=== PATIENT | female | born 1955 | race Hispanic/Latino ===

== ENCOUNTER → 2019-05-02 | Outpatient (CLI) | payer MEDICARE ==
[~2019-05-02] MED LIST: IOPAMIDOL 300 MG/ML 15ML VIAL IT ONE; LORAZEPAM INJ 2 MG/ML VIAL ONE
[2019-05-02 10:03] LABS: INR 0.79; PROTHROMBIN TIME 11.4 seconds (11.9-14.5)
[2019-05-02 10:04] LABS: PARTIAL THROMBOPLASTIN TIME 27.8 seconds (23.8-35.5)
--- NOTE | 2019-05-02 12:48 | Diagnostic Imaging Report ---
PROCEDURE: Image guided lumbar and thoracic spine myelogram Procedural Personnel Attending physician(s): Cordell Laboy MD Fellow physician(s): None Resident physician(s): None Advanced practice provider(s): None Pre-procedure diagnosis: Back pain, radiculopathy Post-procedure diagnosis: Same Indication: Back pain Additional clinical history: None Complications: No immediate complications. IMPRESSION: Fluoroscopically guided thoracic and lumbar myelogram. Patient transported to CT following the procedure for CT myelography. PROCEDURE SUMMARY: - Fluoroscopically guided myelogram, performed at L3-4. PROCEDURE DETAILS: Pre-procedure Consent: Informed consent for the procedure including risks, benefits and alternatives was obtained and time-out was performed prior to the procedure. Preparation: The site was prepared and draped using maximal sterile barrier technique including cutaneous antisepsis. Anesthesia/sedation Level of anesthesia/sedation: Anxiolysis (2mg IV Ativan) Myelogram. Dam Attendant images were obtained. Under image guidance and via a translaminar approach, a needle was advanced to the thecal space. 10cc of Isovue 300 contrast material was delivered. Target level: L3-4 The table was positioned Trendelenburg and contrast was visualized flowing to the thoracic spine. Radiation Dose Fluoroscopy time (minutes): 1.9 Reference air kerma (mGy): 14.5 Additional Details Additional description of procedure: None Equipment details: None Specimens removed: None Estimated blood loss (mL): Less than 10 Attestation Signer name: Cordell Laboy MD I attest that I was present for the entire procedure. I reviewed the stored images and agree with the report as written. Signed by: Cordell Laboy MD on 05/02/2019 12:45 PM
--- NOTE | 2019-05-02 13:57 | Diagnostic Imaging Report ---
CT THORACIC SPINE W HISTORY: Back pain COMPARISON: None. TECHNIQUE: Axial CT images of the thoracic spine were obtained after the administration of intrathecal contrast. Coronal/sagittal reformations were created. One or more of the following dose reduction techniques were used: Automated exposure control, adjustment of the mA and/or kV according to patient size, and/or utilization of iterative reconstruction technique. FINDINGS: Thoracic kyphosis is preserved. There is no significant scoliosis or subluxation. No fracture, compression deformity, or destructive osseous lesions are seen. The thecal sac is well opacified. The spinal cord is overall normal in morphology. The paravertebral and paraspinal soft tissues are unremarkable. Degenerative changes: Mild to moderate multilevel thoracic spondylosis Mild canal stenosis at T8-T9 is due to a posterior disc osteophyte complex. Mild canal stenosis at T10-T11 is due to asymmetric disc bulge towards the right and ligamentum flavum thickening. Mild canal stenosis at T12-L1 due to possible small left central disc extrusion (with mild superior migration). Multilevel foraminal stenoses due to posterior disc osteophyte complexes and facet arthrosis are present - mild bilaterally at T1-T2, mild bilaterally at T2-T3, mild on the left at T8-T9, and moderate on the right at T10-T11. Moderate lower cervical spondylosis is partially imaged. Moderate canal stenosis at C6-C7 is due to posterior disc osteophyte complex. Moderate bilateral C6-C7 and severe right and moderate left foraminal stenoses are due to uncovertebral and facet arthrosis. Additional findings: There is mild bibasilar atelectasis. A small hiatal hernia is present. Surgical clips along the proximal stomach are partially imaged. Diffuse scattered calcified atherosclerosis is present. IMPRESSION: 1. No acute osseous abnormalities. 2. Mild to moderate multilevel thoracic spondylosis. 3. Associated mild canal stenoses at T8-T9, T10-T11, and T12-L1. 4. Multilevel thoracic bilateral foraminal stenoses - moderate on the right at T10-T11. 5. Partially imaged moderate lower cervical spondylosis. Signed by: Dr. Abdiel Mesa M.D. on 05/02/2019 1:54 PM
--- NOTE | 2019-05-02 14:10 | Diagnostic Imaging Report ---
CT LUMBAR SPINE W HISTORY: Back pain COMPARISON: Concurrent thoracic spine myelogram TECHNIQUE: Axial CT images of the lumbar spine were obtained after administration of intrathecal contrast. Coronal and sagittal reconstructions obtained from the axial data. One or more of the following dose reduction techniques were used: Automated exposure control, adjustment of the mA and/or kV according to patient size, and/or utilization of iterative reconstruction technique. DISCUSSION: There are 5 nonrib-bearing lumbar vertebral bodies. Lumbar lordosis is preserved. Mild thoracolumbar levoscoliosis is present. No fracture, compression deformity, or destructive osseous lesion is seen. The thecal sac is opacified. The visualized lower spinal cord and cauda equina are unremarkable. The conus terminates at L1-L2, which is within normal limits. The paravertebral and paraspinal soft tissues are unremarkable. Mild multilevel lumbar spondylosis is present. Mild to moderate bilateral sacroiliac degenerative changes are present as well. L1-L2: Mild left foraminal stenosis due to asymmetric disc bulge and facet arthrosis. No significant canal or right foraminal stenosis. L2-L3: Mild right foraminal stenosis due to asymmetric disc bulge and facet arthrosis. No significant canal or left foraminal stenosis. L3-L4: Mild canal stenosis due to disc bulge and ligamentum flavum thickening. Moderate right and mild to moderate left foraminal stenoses due to disc bulge and facet arthrosis. L4-L5: Mild bilateral foraminal stenoses due to disc bulge and facet arthrosis. No significant canal stenosis. L5-S1: Grade 1 anterolisthesis of L5 on S1 due to severe bilateral L5-S1 facet arthrosis. Mild to moderate right and moderate to severe left foraminal stenoses due to uncovered disc bulge and facet arthrosis. Aortoiliac calcified atherosclerosis is noted. IMPRESSION: 1. No acute osseous abnormalities. 2. Mild multilevel lumbar spondylosis with mild thoracolumbar levoscoliosis. 3. Grade 1 anterolisthesis of L5 on S1 due to severe bilateral L5-S1 facet arthrosis. 4. Multilevel bilateral degenerative foraminal stenoses - moderate to severe on the left at L5-S1. 5. Mild degenerative canal stenosis at L3-L4. Signed by: Dr. Abdiel Mesa M.D. on 05/02/2019 2:06 PM
== END ==
LOC: DX 08:40
PROVIDERS: ATTEND Neurological Surgery
DX: M51.14 Intervertebral disc disorders with radiculopathy, thoracic region (principal)
CPT/HCPCS: 36415; 62305; 72129; 72132; 85049; 85610; 85730; J2060; Q9967

== ENCOUNTER → 2019-10-06 | Day surgery (SDC) | payer MEDICARE, OTHER ==
[2019-10-03 12:05] LABS: BASOPHILS # (AUTO) 0.1 (0.0-0.1); BASOPHILS % 1.1 % (0.0-1.0); EOSINOPHILS # (AUTO) 0.1 (0.0-0.4); EOSINOPHILS % 1.1 % (0.0-6.0); HEMATOCRIT 40.5 % (34.2-44.1); HEMOGLOBIN 13.2 g/dL (12.0-16.0); LYMPHOCYTES # (AUTO) 3.1 (1.0-3.2); LYMPHOCYTES % 42.8 % (18.0-39.1); MEAN CORPUSCULAR HEMOGLOBIN 28.8 pg (28-32); MEAN CORPUSCULAR HGB CONC 32.6 g/dL (31-35); MEAN CORPUSCULAR VOLUME 88.2 fL (81-99); MONOCYTES # (AUTO) 0.4 (0.2-0.8); NEUTROPHILS # (AUTO) 3.6 (2.1-6.9); NEUTROPHILS % 48.9 % (38.7-80.0); PLATELET COUNT 332 x10e3/uL (140-360); RED BLOOD COUNT 4.59 x10e6/uL (3.6-5.1); RED CELL DISTRIBUTION WIDTH 12.3 % (11.7-14.4)
[~2019-10-06] MED LIST changes: +ASPIRIN81 MG PO; +CARVEDILOL3.125 MG PO; +CLONIDINE HCL0.1 MG PO; +CRESTOR10 MG PO; +DEXAMETHASONE SOD PHOS 10 MG/1 ML VIAL ONE; +FENTANYL CITRATE/PF 100MCG/2 ML INJ ONE; +FERROUS SULFAT325 MG PO; +FUROSEMIDE40 MG PO; +GABAPENTIN100 MG PO; +GLIPIZIDE5 MG PO; +IOPAMIDOL 200 MG/ML 20 ML VIAL IT ONE; -IOPAMIDOL 300 MG/ML 15ML VIAL IT ONE; +LIDOCAINE HCL 1% 30ML-PF VIAL ONE; +LIDOCAINE HCL 2% LOCAL INJ 5 ML SDV VIAL INJ ONE; +LISINOPRIL10 MG PO; +LORATADINE10 MG PO; -LORAZEPAM INJ 2 MG/ML VIAL ONE; +METFORMIN HCL500 M2 PO; +MIDAZOLAM HCL 2 MG/2 ML VIAL ONE; +PROPOFOL IV EMULSION 10 MG/ML 20 ML VIAL ONE; +ZANAFLEX4 MG PO; +ZETIA10 MG PO
[2019-10-06 07:15] VITALS: BP 157/76
--- NOTE | 2019-10-06 09:30 | Diagnostic Imaging Report ---
OR Fluoroscopy: IMPRESSION: Fluoroscopy service provided in the OR. Interpretation not requested. Signed by: Tam Tidwell MD on 10/06/2019 9:27 AM
--- OUTSIDE RECORDS SUMMARY | 2019-10-06 10:25 | XMS REPORT ---
Author Author [facility] t Organization [facility] Address [address] [place] [address] [address] [place] [address] Phone Unavailable Care Team Providers Care Rod Greaser Name Role Phone PEDRITO HILL Attphypaulie Unavailable Payers Payer Name Policy Type Policy Number Effective Date Expiration Date S ource Problems This patient has no known problems. Allergies, Adverse Reactions, Alerts Allergy Name Allergy Type Status Severity Reaction(s) Onset Date Inacti ve Date Treating Clinician Comments Source No Known Allergies DA Active U 2014-02-01 00:00:00 [facility] Medications This patient has no known medications. Procedures This patient has no known procedures. Results Test Description Test Time Test Comments Results Result Comments Source CT LUMBAR SPINE W 2019-05-02 13:57:00 [facility] [address] [address] Patient Name: PIERRE ORDAZ MR #: [id number] : 1955 Age/Sex: 63/F Req #: [id number] Adm Physician: Ordered by: PEDRITO HILL MD Report #: [id number] Location: DX Room/Bed: Procedure: [id number] CT/CT LUMBAR SPINE W Exam Date: 05/02/19 Exam Time: 1227 REPORT STATUS: Signed CT LUMBAR SPINE W HISTORY: Back pain COMPARISON: Concurrent thoracic spine myelogram TECHNIQUE: Axial CT images of the lumbar spine were obtained after administration of intrathecal contrast. Coronal and sagittal reconstructions obtained from the axial data. One or more of the following dose reduction techniques were used: Automated exposure control, adjustment of the mA and/or kV according to patient size, and/or utilization of iterative reconstruction technique. DISCUSSION: There are 5 nonrib-bearing lumbar vertebral bodies. Lumbar lordosis is preserved. Mild thoracolumbar levoscoliosis is present. No frac ture, compression deformity, or destructive osseous lesion is seen. The thecal sac is opacified. The visualized lower spinal cord and cauda equina are unremarkable. The conus terminates at L1-L2, which is within normal limits. The paravertebral and paraspinal soft tissues are unremarkable. Mild multilevel lumbar spondylosis is present. Mild to moderate bilateral sacroiliac degenerative changes are present as well. L1-L2: Mild left foraminal stenosis due to asymmetric disc bulge and facet arthrosis. No significant canal or right foraminal stenosis. L2-L3: Mild right foraminal stenosis due to asymmetric disc bulge and facet arthrosis. No significant canal or left foraminal stenosis. L3-L4: Mild canal stenosis due to disc bulge and ligamentum flavum thickening. Moderate right and mild to moderate left foraminal stenoses due to disc bulge and facet arthrosis. L4-L5: Mild bilateral foraminal stenoses due to disc bulge and facet arthrosis. No significant canal stenosis. L5-S1: Grade 1 anterolisthesis of L5 on S1 due to severe bilateral L5-S1 facet arthrosis. Mild to moderate right and moderate to severe left foraminal stenoses due to uncovered disc bulge and facet arthrosis. Aortoiliac calcified atherosclerosis is noted. IMPRESSION: 1. No acute osseous abnormalities. 2. Mild multilevel lumbar spondylosis with mild thoracolumbar levoscoliosis. 3. Grade 1 anterolisthesis of L5 on S1 due to severe bilateral L5-S1 facet arthrosis. 4. Multilevel bilateral degenerative foraminal stenoses - moderate to severe on the left at L5-S1. 5. Mild degenerative canal stenosis at L3-L4. Signed by: Dr. Abdiel Mesa M.D. on 05/02/2019 2:06 PM Dictated By: ABDIEL MESA MD 05 Transcribed By: SADIE on 05/02/191405 COPY TO: PEDRITO HILL MD CT THORACIC SPINE W 2019-05-02 13:37:00 [address] [place] [address] Patient Name: PIERRE ORDAZ MR #: [id number] : 1955 Age/Sex: 63/F Req #: [id number] Adm Physician: Ordered by: PEDRITO HILL MD Report #: [id number] Location: DX Room/Bed: Procedure: [id number] CT/CT THORACIC SPINE W Exam Date: 05/02/19 Exam Time: 1227 REPORT STATUS: Signed CT THORACIC SPINE W HISTORY: Back pain COMPARISON: None. TECHNIQUE: Axial CT images of the thoracic spine were obtained after the administration of intrathecal contrast. Coronal/sagittal reformations were created. One or more of the following dose reduction techniques were used: Automated exposure control, adjustment of the mA and/or kV according to patient size, and/or utilization of iterative reconstruction technique. FINDINGS: Thoracic kyphosis is preserved. There is no significant scoliosis or subluxation. No fracture, compression deformity, or destructive osseous lesions are seen. The thecal sac is well op acified. The spinal cord is overall normal in morphology. The paravertebral and paraspinal soft tissues are unremarkable. Degenerative changes: Mild to moderate multilevel thoracic spondylosis Mild canal stenosis at T8-T9 is due to a posterior disc osteophyte complex. Mild canal stenosis at T10-T11 is due to asymmetric disc bulge towards the right and ligamentum flavum thickening. Mild canal stenosis at T12-L1 due to possible small left central disc extrusion (with mild superior migration). Multilevel foraminal stenoses due to posterior disc osteophyte complexes and facet arthrosis are present - mild bilaterally at T1-T2, mild bilaterally at T2-T3, mild on the left at T8- T9, and moderate on the right at T10-T11. Moderate lower cervical spondylosis is partially imaged. Moderate canal stenosis at C6-C7 is due to posterior disc osteophyte complex. Moderate bilateral C6-C7 and severe right and moderate left foraminal stenoses are due to uncovertebral and facet arthrosis. Additional findings: There is mild bibasilar atelectasis. A small hiatal hernia is present. Surgical clips along the proximal stomach are partially imaged. Diffuse scattered calcified atherosclerosis is present. IMPRESSION: 1. No acute osseous abnormalities. 2. Mild to moderate multilevel thoracic spondylosis. 3. Associated mild canal stenoses at T8-T9, T10-T11, and T12-L1. 4. Multilevel thoracic bilateral foraminal stenoses - moderate on the right at T10-T11. 5. Partially imaged moderate lower cervical spondylosis. Signed by: Dr. Abdiel Mesa M.D. on 05/02/2019 1:54 PM Dictated By: ABDIEL MESA MD 1350 Transcribed By: SADIE on 05/02/19 1353 COPY TO: PEDRITO HILL MD MYELOGRAM 2+ LEVELS INCL INJ 2019-05-02 12:41:00 [place] [address] Patient Name: PIERRE ORDAZ MR #: [id number] : 1955 Age/Sex: 63/F Req #: [id number] Adm Physician: Ordered by: PEDRITO HILL MD Report #: [id number] Location: DX Room/Bed: Procedure: [id number] IR/MYELOGRAM 2+ LEVELS INCL INJ Exam Date: 05/02/19 Exam Time: 1130 REPORT STATUS: Signed PROCEDURE: Image guided lumbar and thoracic spine myelogram Procedural Personnel Attending physician(s): Fiona Dominguez MD Fellow physician(s): None Resident physician(s): None Advanced practice provider(s): None Pre-procedure diag nosis: Back pain, radiculopathy Post-procedure diagnosis: Same Indication: Back pain Additional clinical history: None Complications: No immediate complications. IMPRESSION: Fluoroscopically guided thoracic and lumbar myelogram. Patient transported to CT following the procedure for CT myelography. PROCEDURE SUMMARY: - Fluoroscopically guided myelogram, performed at L3-4. PROCEDURE DETAILS: Pre-procedure Consent: Informed consent for the procedure including risks, benefits and alternatives was obtained and time-out was performed prior to the procedure. Preparation: The site was prepared and draped using maximal sterile barrier technique including cutaneous antisepsis. Anesthesia/sedation Level of anesthesia/sedation: Anxiolysis (2mg IV Ativan) Myelogram. Ratchet Setter images were obtained. Under image guidance and via a translaminar approach, a needle was advanced to the thecal space. 10cc of Isovue 300 contrast material was delivered. Target level: L3-4 The table was positioned Trendelenburg and contrast was visualized flowing to the thoracic spine. Radiation Dose Fluoroscopy time (minutes): 1.9 Reference air kerma (mGy): 14.5 Additional Details Additional description of procedure: None Equipment details: None Specimens removed: None Estimated blood loss (mL): Less than 10 Attestation Signer name: Fiona Dominguez MD I attest that I was present for the entire procedure. I reviewed the stored images and agree with the report as written. Signed by: Fiona Dominguez MD on 05/02/2019 12:45 PM Dictated By: FIONA DOMINGUEZ MD 1245 Transcribed By: SADIE on 05/02/19 1245 COPY TO: PEDRITO HILL MD
== END | disposition home or self-care (01) ==
LOC: OR 05:04
PROVIDERS: ATTEND Physical Medicine & Rehabilitation Pain Medicine
DX: M54.16 Radiculopathy, lumbar region (principal); M54.12 Radiculopathy, cervical region; I11.0 Hypertensive heart disease with heart failure; I50.9 Heart failure, unspecified; E78.5 Hyperlipidemia, unspecified; E11.9 Type 2 diabetes mellitus without complications; E03.9 Hypothyroidism, unspecified; I25.2 Old myocardial infarction; K44.9 Diaphragmatic hernia without obstruction or gangrene; D64.9 Anemia, unspecified; R00.1 Bradycardia, unspecified; Z79.82 Long term (current) use of aspirin; Z79.84 Long term (current) use of oral hypoglycemic drugs
CPT/HCPCS: 36415 ×2; 64483; 64484 ×2; 82948; 85025; 87635; J1100; J2001 ×2; J2250; J2704; J3010; Q9967; 77003